=== PATIENT | female | born 1965 | race African-American/Black ===

== ENCOUNTER 2021-01-16 00:09 | Emergency (ER) | payer MEDICAID, OTHER ==
[~2021-01-16] VITALS: Ht 167.6 cm; Wt 65.0 kg
[2021-01-16] MEDS ORDERED: ACET-2708 MT (01:09)
[2021-01-16] MEDS ORDERED: ACETAMINOPHEN 325MG TABLET PO ONE (01:15)
[2021-01-16 01:36] VITALS: BP 142/76
== END 2021-01-16 01:40 | disposition home or self-care (01) ==
LOC: ER 00:09
DX: M54.2 Cervicalgia (principal); E11.9 Type 2 diabetes mellitus without complications; Z85.3 Personal history of malignant neoplasm of breast
CPT/HCPCS: 99283